=== PATIENT | female | born 1960 | race Caucasian/White ===

== ENCOUNTER 2020-07-16 23:55 | Emergency (ER) | payer BC ==
--- OUTSIDE RECORDS SUMMARY | 2020-07-16 23:58 | XMS REPORT | Continuity of Care Document ---
:1960 Author Organization [facility] t Address [address] [place] [address] Care Team Providers Name Role Phone Unavailable Unavailable Unavailable Problems This patient has no known problems. Allergies, Adverse Reactions, Alerts This patient has no known allergies or adverse reactions. Medications Ordered Filled Start Stop Current Ordering Indication Dosage Frequency Signature Comments Components Source Medication Medication Date Date Medication? Clinician (SIG) Name Name Protonix Protonix Yes Je take [address] [facility] tablet by [facility] every day [facility] ent [facility] Estradiol Estradiol Yes Je [address] [facility] Pantoprazol Pantoprazol Yes Je TAKE [address] [facility] e Sodium e Sodium Menjivar TABLET BY L [facility] - MOUTH Memoria EVERY DAY [facility] Vitamin Vitamin Yes Je [address] [facility] D-1000 Max D-1000 Max Menjivar Sarah kes - [facility] Immunizations Ordered Filled Immunization Date Status Comments Sourc e Immunization Name Name Shingrix Shingrix 2019-05-[address] [facility] Procedures This patient has no known procedures. Encounters Start End Encounter Admission Attending Care Care Encounter Source Date/Time Date/Time Type Type Clinicians Facility Department ID 2020-02-05 2020-02-05 [facility] [id number] [facility] 2020-01-15 2020-01-15 [facility] [id number] [facility] 2020-01-15 2020-01-15 [facility] [id number] [facility] 2019-09-25 2019-09-25 [facility] [id number] [facility] 15:45:[facility] 15:45:[address] [facility] - [facility] 2019-09-06 2019-09-06 [facility] [id number] [address] 06:43:00 06:43:00 t Bethel Bethel [employer] [facility] - Drive [facility] 2019-05-16 2019-05-16 [facility] [id number] 15:45:00 15:45:00 t Bethel Bet[address] [employer] [place] - Drive [facility] 2019-04-02 2019-04-02 [facility] [id number] [address] 11:30:00 11:30:00 t Bethel Bethel [employer] [place] - [facility] 2019-03-26 2019-03-26 [facility] [id number] [address] 10:00:00 10:00:00 t Bethel Bethel [employer] [place] - [facility] 2019-03-06 2019-03-06 [facility] [id number] [address] 11:45:00 11:45:00 t Bethel Bethel [employer] - Drive [facility] 2019-02-08 2019-02-08 [facility] [id number] 14:30:00 14:30:00 t Bethel Bethel [employer] - Drive [facility] 2018-10-09 2018-10-09 [facility] [id number] [address] 08:16:00 08:16:00 t Bethel Bethel [employer] - Drive [facility] 2018-08-30 2018-08-30 [facility] [id number] 08:15:00 08:15:00 t [facility] 2018-06-08 2018-06-08 [facility] [id number] [address] 08:30:00 08:30:00 [facility] 2018-03-18 2018-03-18 [facility] [id number] 12:00:00 12:00:00 t [facility] 2018-03-01 2018-03-01 [facility] [id number] 09:00:00 09:00:00 [facility] Results This patient has no known results.
[2020-07-17] MEDS ORDERED: ACETAMINOPHEN 325 MG TABLET ONE (01:09)
[2020-07-17 01:23] LABS: Absolute Lymphocytes (CBC) 2.2 K/uL (0.7-4.9); Basophils % 0.7 % (0-1.3); Hematocrit 46.6 % (36.0-45.0); Lymphocytes % 38.6 % (15.3-44.8); MPV 9.2 fL (7.6-11.3); RBC Red Blood Cell Count 5.12 M/uL (3.86-4.86)
--- NOTE | 2020-07-17 02:34 | EDPHYS ---
Physician Documentation [facility] Name: Amparo Denise Age: 59 yrs Sex: Female : 1960 Arrival Date: 07/16/2020 Time: 23:59 Bed 5 Private MD: [facility] ED Physician Dimitri Valle HPI: 07/17 02:16 This 59 yrs old Female presents to ER via Ambulatory with complaints of High pkl Blood Pressure, Dizziness. 02:19 Onset: The symptoms/episode began/occurred 2 week(s) ago. Associated signs and pkl symptoms: Pertinent positives: dizziness. Historical: - Allergies: 00:23 No Known Allergies; bb - Home Meds: 00:23 Estradiol Oral [Active]; pantoprazole oral oral [Active]; herbal supplements [Active]; bb - PMHx: 00:23 None; bb - PSHx: 00:23 Hysterectomy; breast augmentation; bb - Immunization history:: Adult Immunizations up to date. - Social history:: Smoking status: Patient denies any tobacco usage or history of. ROS: 02:19 Eyes: Negative for injury, pain, redness, and discharge, ENT: Negative for injury, pkl pain, and discharge, Neck: Negative for injury, pain, and swelling, Cardiovascular: Negative for chest pain, palpitations, and edema, Respiratory: Negative for shortness of breath, cough, wheezing, and pleuritic chest pain, Abdomen/GI: Negative for abdominal pain, nausea, vomiting, diarrhea, and constipation, Back: Negative for injury and pain, : Negative for injury, bleeding, discharge, and swelling, MS/Extremity: Negative for injury and deformity, Skin: Negative for injury, rash, and discoloration. 02:19 Neuro: Positive for dizziness. Exam: 02:19 Head/Face: Normocephalic, atraumatic. Eyes: Pupils equal round and reactive to light, pkl extra-ocular motions intact. Lids and lashes normal. Conjunctiva and sclera are non-icteric and not injected. Cornea within normal limits. Periorbital areas with no swelling, redness, or edema. ENT: Nares patent. No nasal discharge, no septal abnormalities noted. Tympanic membranes are normal and external auditory canals are clear. Oropharynx with no redness, swelling, or masses, exudates, or evidence of obstruction, uvula midline. Mucous membranes moist. Neck: Trachea midline, no thyromegaly or masses palpated, and no cervical lymphadenopathy. Supple, full range of motion without nuchal rigidity, or vertebral point tenderness. No Meningismus. Chest/axilla: Normal chest wall appearance and motion. Nontender with no deformity. No lesions are appreciated. Cardiovascular: Regular rate and rhythm with a normal S1 and S2. No gallops, murmurs, or rubs. Normal PMI, no JVD. No pulse deficits. Respiratory: Lungs have equal breath sounds bilaterally, clear to auscultation and percussion. No rales, rhonchi or wheezes noted. No increased work of breathing, no retractions or nasal flaring. Abdomen/GI: Soft, non-tender, with normal bowel sounds. No distension or tympany. No guarding or rebound. No evidence of tenderness throughout. Back: No spinal tenderness. No costovertebral tenderness. Full range of motion. Skin: Warm, dry with normal turgor. Normal color with no rashes, no lesions, and no evidence of cellulitis. MS/ Extremity: Pulses equal, no cyanosis. Neurovascular intact. Full, normal range of motion. Neuro: Awake and alert, GCS 15, oriented to person, place, time, and situation. Cranial nerves II-XII grossly intact. Motor strength 5/5 in all extremities. Sensory grossly intact. Cerebellar exam normal. Normal gait. Vital Signs: 00:16 BP 178 / 97; Pulse 66; Resp 16 S; Temp 97.4(O); Pulse Ox 99% on R/A; Weight 67.13 kg bb (R); Height 5 ft. 6 in. (167.64 cm) (R); Pain 4/10; 01:30 BP 162 / 85; Pulse 60; Resp 18; Pulse Ox 100% on R/A; jb4 02:15 BP 144 / 77; Pulse 64; Resp 16; Pulse Ox 100% on R/A; jb4 00:16 Body Mass Index 23.89 (67.13 kg, 167.64 cm) bb MDM: 00:40 Patient medically screened. pkl 02:31 Data reviewed: vital signs, nurses notes, lab test result(s). ED course: Patient pkl feeling better. Discussed lab results with patient. Advised to follow up with PCP next week. To return if necessary. Patient understood instruction. 07/17 00:52 Order name: CBC with Diff pkl 07/17 00:52 Order name: COVID-19 : Document "Date of Symptom Onset" if Symptomatic. pkl 07/17 00:53 Order name: CBC with Automated Diff; Complete Time: 01:45 EDMS 07/17 02:19 Order name: SARS-COV-2 RT PCR; Complete Time: 02:22 EDMS Administered Medications: 00:53 Drug: Tylenol 650 mg Route: PO; jb4 01:30 Follow up: Response: No adverse reaction; Marked relief of symptoms; Pain is decreased jb4 Disposition: 07/17/20 02:34 Discharged to Home. Impression: Dizziness. Headache. - Condition is Stable. - Prescriptions for Antivert 25 mg Oral Tablet - take 1 tablet by ORAL route 2 times per day As needed; 20 tablet. - Medication Reconciliation Form, Thank You Letter, Antibiotic Education, Prescription Opioid Use form. - Follow up: Je Menjivar DO; When: 1 week; Reason: Re-evaluation by your physician. - Problem is new. - Symptoms have improved. Signatures: Dispatcher [employer] [facility] Dimitri Valle MD MD pkMackenzie Alves RN RN bb Jeronimo Steele RN RN jb4 Corrections: (The following items were deleted from the chart) 01:36 00:53 CORONAVIRUS ordered. [facility] EDMS 02:41 02:34 07/17/2020 02:34 Discharged to Home. Impression: Dizziness. Headache. Condition jb4 is Stable. Forms are Medication Reconciliation Form, Thank You Letter, Antibiotic Education, Prescription Opioid Use. Follow up: Je Menjivar; When: 1 week; Reason: Re-evaluation by your physician. Problem is new. Symptoms have improved. pkl
--- NOTE | 2020-07-17 02:34 | ER ---
Nurse's Notes [facility] Name: Amparo Denise Age: 59 yrs Sex: Female : 1960 Arrival Date: 07/16/2020 Time: 23:59 Bed 5 Private MD: Je Menjivar Diagnosis: Dizziness. Headache Presentation: 07/17 00:16 Chief complaint: Patient states: her blood pressure has been up the last couple of bb weeks, she is feeling "fluttering in my head" she states her stomach has been upset and she woke up last Tuesday and the room was spinning which just lasted a few seconds then she had a similar episode tonight. Coronavirus screen: pt coworker diagnosed with Covid recently. Ebola Screen: No symptoms or risks identified at this time. Initial Sepsis Screen: Does the patient meet any 2 criteria? No. Patient's initial sepsis screen is negative. Does the patient have a suspected source of infection? No. Patient's initial sepsis screen is negative. Risk Assessment: Do you want to hurt yourself or someone else? Patient reports no desire to harm self or others. Onset of symptoms is unknown. 00:16 Method Of Arrival: Ambulatory bb 00:16 Acuity: FRANCIS 3 bb Historical: - Allergies: 00:23 No Known Allergies; bb - Home Meds: 00:23 Estradiol Oral [Active]; pantoprazole oral oral [Active]; herbal supplements [Active]; bb - PMHx: 00:23 None; bb - PSHx: 00:23 Hysterectomy; breast augmentation; bb - Immunization history:: Adult Immunizations up to date. - Social history:: Smoking status: Patient denies any tobacco usage or history of. Screenin:27 Abuse screen: Denies threats or abuse. Nutritional screening: No deficits noted. jb4 Tuberculosis screening: No symptoms or risk factors identified. Fall Risk None identified. Assessment: 00:27 General: Appears in no apparent distress. comfortable, Behavior is calm, cooperative, jb4 appropriate for age. Pain: Complains of pain in headache Pain does not radiate. Pain currently is 4 out of 10 on a pain scale. Neuro: Level of Consciousness is awake, alert, obeys commands, Oriented to person, place, time, situation, Reports dizziness. Cardiovascular: Patient's skin is warm and dry. Respiratory: Airway is patent Respiratory effort is even, unlabored, Respiratory pattern is regular, symmetrical. GI: No signs and/or symptoms were reported involving the gastrointestinal system. : No signs and/or symptoms were reported regarding the genitourinary system. EENT: No signs and/or symptoms were reported regarding the EENT system. Derm: Skin is intact, Skin is pink, warm \\T\\ dry. Musculoskeletal: Circulation, motion, and sensation intact. Range of motion: intact in all extremities. 01:30 Reassessment: Patient appears in no apparent distress at this time. Patient and/or jb4 family updated on plan of care and expected duration. Pain level reassessed. Patient is alert, oriented x 3, equal unlabored respirations, skin warm/dry/pink. 02:15 Reassessment: Patient appears in no apparent distress at this time. Patient and/or jb4 family updated on plan of care and expected duration. Pain level reassessed. Patient is alert, oriented x 3, equal unlabored respirations, skin warm/dry/pink. Vital Signs: 00:16 BP 178 / 97; Pulse 66; Resp 16 S; Temp 97.4(O); Pulse Ox 99% on R/A; Weight 67.13 kg bb (R); Height 5 ft. 6 in. (167.64 cm) (R); Pain 4/10; 01:30 BP 162 / 85; Pulse 60; Resp 18; Pulse Ox 100% on R/A; jb4 02:15 BP 144 / 77; Pulse 64; Resp 16; Pulse Ox 100% on R/A; jb4 00:16 Body Mass Index 23.89 (67.13 kg, 167.64 cm) ED Course: 07/16 23:59 Patient arrived in ED. es 07/17 00:00 Je Menjivar DO is Private Physician. es 00:21 Triage completed. bb 00:23 Arm band placed on Patient placed in an exam room, on a stretcher, on pulse oximetry. bb Family accompanied patient. 00:26 Jeronimo Steele, RN is Primary Nurse. jb4 00:27 Patient has correct armband on for positive identification. Bed in low position. Call jb4 light in reach. Side rails up X 1. Pulse ox on. NIBP on. 00:39 Dimitri Valle MD is Attending Physician. pkl 02:33 Je Menjivar DO is Referral Physician. pkl 02:41 No provider procedures requiring assistance completed. Patient did not have IV access jb4 during this emergency room visit. Administered Medications: 00:53 Drug: Tylenol 650 mg Route: PO; jb4 01:30 Follow up: Response: No adverse reaction; Marked relief of symptoms; Pain is decreased jb4 Outcome: 02:34 Discharge ordered by MD. pkl 02:41 Discharged to home ambulatory, with family. jb4 02:41 Condition: stable 02:41 Discharge instructions given to patient, Instructed on discharge instructions, follow up and referral plans. medication usage, Demonstrated understanding of instructions, follow-up care, medications, Prescriptions given X 1. 02:41 Patient left the ED. jb4 Signatures: Dimitri Valle MD MD pkl Dalia Carter Brenda, RN RN bb Jeronimo Steele RN RN jb4 Corrections: (The following items were deleted from the chart) 00:28 00:27 Neuro: Level of Consciousness is awake, alert, obeys commands, Oriented to jb4 person, place, time, situation, jb4
[2020-07-17 02:47] VITALS: TEMP 97.4
[2020-07-17 02:48] VITALS: O2SAT 100
[2020-07-17 02:49] VITALS: BP 144/77
== END 2020-07-17 02:41 | disposition home or self-care (01) ==
LOC: ER 23:55
DX: R51.9 Headache, unspecified (principal); Z20.822 Contact with and (suspected) exposure to COVID-19; Z98.82 Breast implant status
CPT/HCPCS: 85025; 36415; 99283; U0003